=== PATIENT | male | born 1970 | race Two or more races ===

== ENCOUNTER 2019-05-30 15:54 | Emergency (ER) | payer MEDICAID, OTHER ==
[~2019-05-30] VITALS: Ht 170.2 cm; Wt 72.6 kg
[~2019-05-30 15:54] MED LIST: ATIVAN0.5 MG ORAL; ATIVAN1 MG ORAL; NKM
[2019-05-30 16:06] VITALS: BP 130/72
--- NOTE | 2019-05-30 16:09 | NUR ---
ED Nurse Note: pt [place] in to ER [place] ambulance [place] [facility] due to chest pain 05/11. pt aao x4 and ambulatory but weak at this moment. restless but cooperative with care and assessment. skin clean and intact. pt is in gown and on vehicle monitor technician. no aucte distress noted at this time.
--- NOTE | 2019-05-30 16:25 | Emergency Room Report ---
History of Present Illness General Chief Complaint: Chest Pain Source: Patient, EMS Present Illness HPI Patient is a 48-year-old male who presented after increased palpitations. Patient reportedly had been having chest pain for the past 2 days. He reports having increased alcohol use on Monday. He states he is not had any recent alcohol. He reports having generalized chest discomfort as well as anxiety. He states is not currently taking any medications for his heart.Patient given aspirin as well as nitroglycerin by EMS without any improvement. Allergies: Coded Allergies: No Known Allergies (Unverified , 05/10/14) Patient History Past Medical History: see triage record Reviewed Nursing Documentation: PMH: Agreed; PSxH: Agreed Nursing Documentation-PMH Past Medical History: No Stated History Hx Cardiac Problems: No Hx Cancer: No Hx Gastrointestinal Problems: Yes Hx Neurological Problems: No Review of Systems All Other Systems: negative except mentioned in HPI Physical Exam Vital Signs Date Time Temp Pulse Resp B/P (MAP) Pulse Ox O2 Delivery O2 Flow Rate FiO2 05/30/19 15:50 98.8 144 22 130/72 (91) 100 Room Air Sp02 EP Interpretation: reviewed, normal General Appearance: normal inspection, well appearing, no apparent distress, alert, GCS 15 Head: atraumatic ENT: normal ENT inspection, hearing grossly normal, normal voice Neck: normal inspection, full range of motion, supple, no bony tend Respiratory: normal inspection, lungs clear, normal breath sounds, no respiratory distress, no retraction, no wheezing Cardiovascular #1: no edema, tachycardia Gastrointestinal: normal inspection, normal bowel sounds, non tender, soft, no guarding, no hernia Genitourinary: no CVA tenderness Musculoskeletal: normal inspection, back normal, normal range of motion Neurologic: normal inspection, alert, oriented x3, responsive, neonatal social worker III-XII nml as tested, speech normal Psychiatric: normal inspection, judgement/insight normal, mood/affect normal Medical Decision Making Diagnostic Impression: Primary Impression: Acute alcoholic intoxication ER Course Patient presented for chest pain. Differential diagnosis included but was not limited to acute coronary syndrome, pulmonary embolism, pneumothorax, pericarditis, aortic dissection, chest wall pain, shingles, pneumonia, esophageal perforation among others. Because of patients complexity, laboratory tests and imaging studies were ordered Patient was noted to have recent history of alcohol abuse and was given IV acid blockers as well as thiamine IV. He was given medication for rate control. He was started on IV fluids with improvement in initial tachycardia. EKG interpreted by me showed sinus tachycardia without acute st or t wave changes. Laboratory Tests Test 05/30/19 16:10 05/30/19 16:38 White Blood Count 14.6 K/UL (4.8-10.8) H Red Blood Count 5.77 M/UL (4.70-6.10) Hemoglobin 17.5 G/DL (14.2-18.0) Hematocrit 50.4 % (42.0-52.0) Mean Corpuscular Volume 87 FL (80-99) Mean Corpuscular Hemoglobin 30.4 PG (27.0-31.0) Mean Corpuscular Hemoglobin Concent 34.8 G/DL (32.0-36.0) Red Cell Distribution Width 11.9 % (11.6-14.8) Platelet Count 261 K/UL (150-450) Mean Platelet Volume 6.2 FL (6.5-10.1) L Neutrophils (%) (Auto) 60.2 % (45.0-75.0) Lymphocytes (%) (Auto) 31.3 % (20.0-45.0) Monocytes (%) (Auto) 7.2 % (1.0-10.0) Eosinophils (%) (Auto) 0.5 % (0.0-3.0) Basophils (%) (Auto) 0.9 % (0.0-2.0) Sodium Level 145 MMOL/L (136-145) Potassium Level 3.7 MMOL/L (3.5-5.1) Chloride Level 103 MMOL/L (98-107) Carbon Dioxide Level 21 MMOL/L (21-32) Anion Gap 21 mmol/L (5-15) H Blood Urea Nitrogen 15 mg/dL (7-18) Creatinine 1.2 MG/DL (0.55-1.30) Estimate Glomerular Filtration Rate > 60 mL/min (>60) Glucose Level 138 MG/DL (74-106) H Calcium Level 8.8 MG/DL (8.5-10.1) Total Bilirubin 0.9 MG/DL (0.2-1.0) Aspartate Amino Transferase (AST) 47 U/L (15-37) H Alanine Aminotransferase (ALT) 27 U/L (12-78) Alkaline Phosphatase 63 U/L (46-116) Total Creatine Kinase 786 U/L (26-308) H Troponin I 0.004 ng/mL (0.000-0.056) Pro-B-Type Natriuretic Peptide < 5 pg/mL (0-125) Total Protein 8.1 G/DL (6.4-8.2) Albumin 4.1 G/DL (3.4-5.0) Globulin 4.0 g/dL Albumin/Globulin Ratio 1.0 (1.0-2.7) Lipase 102 U/L (73-393) Serum Alcohol 282 mg/dL Urine Opiates Screen Negative (NEGATIVE) Urine Barbiturates Screen Negative (NEGATIVE) Phencyclidine (PCP) Screen Negative (NEGATIVE) Urine Amphetamines Screen Negative (NEGATIVE) Urine Benzodiazepines Screen Negative (NEGATIVE) Urine Cocaine Screen Negative (NEGATIVE) Urine Marijuana (THC) Screen Negative (NEGATIVE) EKG Diagnostic Results Rate: tachycardiac - 123 Rhythm: NSR ST Segments: other - lafb Last Vital Signs Date Time Temp Pulse Resp B/P (MAP) Pulse Ox O2 Delivery O2 Flow Rate FiO2 05/30/19 16:06 126 25 Room Air 05/30/19 16:06 98.8 130/72 100 Status: improved Disposition: HOME, SELF-CARE Condition: Stable Referrals: NOT CHOSEN IPA/,REFERRING (PCP) Tony Escobar MD May 30, 2019 16:25
[2019-05-30] MEDS ORDERED: Metoprolol 5mg/5ml Inj IVP SCH (16:30)
[2019-05-30] MEDS ORDERED: Thiamine HCl 100 MG in D5W 55 ML IVPB ONE (16:30)
[2019-05-30] MEDS ORDERED: LORazepam Inj 2mg/ml 1ml IV ONE (16:30)
[2019-05-30 16:46] LABS: BASOPHILS % (AUTO) 0.9 % (0.0-2.0); EOSINOPHILS % (AUTO) 0.5 % (0.0-3.0); HEMATOCRIT 50.4 % (42.0-52.0); HEMOGLOBIN 17.5 G/DL (14.2-18.0); LYMPHOCYTES % (AUTO) 31.3 % (20.0-45.0); MEAN CORPUSCULAR VOLUME 87 FL (80-99); MONOCYTES % (AUTO) 7.2 % (1.0-10.0); NEUTROPHILS % (AUTO) 60.2 % (45.0-75.0); PLATELET COUNT 261 K/UL (150-450); RED BLOOD COUNT 5.77 M/UL (4.70-6.10); RED CELL DISTRIBUTION WIDTH 11.9 % (11.6-14.8); WHITE BLOOD COUNT 14.6 K/UL (4.8-10.8)
--- NOTE | 2019-05-30 16:54 | NUR ---
ED Nurse Note: called lab for reminder of additional lab order.
[2019-05-30 16:56] LABS: ANION GAP 21 mmol/L (5-15); BLOOD UREA NITROGEN 15 mg/dL (7-18); CALCIUM 8.8 MG/DL (8.5-10.1); CARBON DIOXIDE 21 MMOL/L (21-32); CHLORIDE 103 MMOL/L (98-107); CREATININE 1.2 MG/DL (0.55-1.30); POTASSIUM 3.7 MMOL/L (3.5-5.1); SODIUM 145 MMOL/L (136-145)
[2019-05-30 17:06] LABS: ALANINE AMINOTRANSFERASE 27 U/L (12-78); ALBUMIN 4.1 G/DL (3.4-5.0); ALKALINE PHOSPHATASE 63 U/L (46-116); ASPARTATE AMINO TRANSFERASE 47 U/L (15-37); BILIRUBIN,TOTAL 0.9 MG/DL (0.2-1.0); CREATINE KINASE 786 U/L (26-308)
[2019-05-30 17:53] VITALS: BP 128/69
--- NOTE | 2019-05-30 17:54 | NUR ---
ED Nurse Note: pt resting without acute distress in bed.
--- NOTE | 2019-05-30 18:42 | NUR ---
ED Nurse Note: pt is sober and stable. reported to ERMD.
--- NOTE | 2019-05-30 19:01 | NUR ---
HAND-OFF: Report given to ZACHARIAH Lara. waiting for discharge paper.
--- NOTE | 2019-05-30 19:02 | NUR ---
ED Nurse Note: ED Nurse Note: Recived pt form [facility]. Pt with no acute distress, vss, and states that ge feels much better.
[2019-05-30 21:45] VITALS: BP 137/71
--- NOTE | 2019-05-31 16:38 | Cardiology Report ---
APPROVED REPORT EKG Measurement Heart [id number] Sinus tachycardia Left anterior fascicular block Abnormal ECG
== END 2019-05-30 21:45 | disposition home or self-care (01) ==
LOC: EDBD 15:54 → EMR 16:21
DX: F10.129 Alcohol abuse with intoxication, unspecified (principal); R07.89 Other chest pain; F41.9 Anxiety disorder, unspecified
CPT/HCPCS: 36415; 80053; 80307; 82550; 83690; 83880; 84484; 85025; 93005; 96365; 96367; 96375; 99284; G0480; S0028; 80329

== ENCOUNTER 2019-06-02 23:27 | Emergency (ER) | payer SELFPAY ==
[~2019-06-02] VITALS: Ht 170.2 cm; Wt 68.0 kg
[2019-06-02 23:32] VITALS: BP 132/84
--- NOTE | 2019-06-02 23:32 | NUR ---
ED Nurse Note: BIBA with complaints of hest pain and anxiety.
[2019-06-02] MEDS ORDERED: Nitroglycerin 2% oint pkt TOPIC ONE (23:45)
--- NOTE | 2019-06-02 23:49 | Emergency Room Report ---
History of Present Illness General Chief Complaint: Chest Pain Source: Patient Present Illness HPI Patient complains of chest pain. He was recently hospitalized and says he is troponin was elevated. He alleges was hospitalized for 5 days. Not been taking any medications because none were given on discharge. He denies any drug use. He denies diabetes or hypertension. He feels like he is dying. He denies suicidal ideation. The patient was transported by EMS. Prehospital EKG was normal. He rates the pain 8/10, aching pressure and constant. He denies exertional dyspnea or worsening of chest pain with exertion. Review of records here reveals the patient's been seen for alcohol ingestion in the past. (There is no evidence of any troponins being elevated.) He says is been given prescriptions but has not bothered filling them on discharge. At one point he states that he last drank 2 days ago and then another point he says it must of been 5 days ago. No fevers, chills, sore throat, palpitations, nausea, vomiting, diarrhea, dysuria, abdominal pain, joint pain, rashes, visual changes, headache. Allergies: Coded Allergies: No Known Allergies (Unverified , 05/10/14) Patient History Past Medical History: see triage record Social History: Reports: alcohol use; Denies: smoking Social History Narrative correctional counselor/case manager - [facility] Reviewed Nursing Documentation: PMH: Agreed; PSxH: Agreed Nursing Documentation-PMH Past Medical History: No History, Except For Hx Cardiac Problems: No Hx Cancer: No Hx Gastrointestinal Problems: Yes History Of Psychiatric Problem: Yes - ANXIETY Hx Neurological Problems: No Review of Systems All Other Systems: negative except mentioned in HPI Physical Exam Vital Signs Date Time Temp Pulse Resp B/P (MAP) Pulse Ox O2 Delivery O2 Flow Rate FiO2 06/02/19 23:32 98.4 86 14 132/84 (100) 98 Room Air Sp02 EP Interpretation: reviewed, normal General Appearance: well appearing, no apparent distress, GCS 15 Head: normocephalic Eyes: bilateral eye normal inspection ENT: moist mucus membranes Neck: supple Respiratory: chest non-tender, lungs clear, normal breath sounds Cardiovascular #1: regular rate, rhythm, no edema Cardiovascular #2: 2+ radial (R) Gastrointestinal: normal inspection, normal bowel sounds, non tender, no mass, non-distended Musculoskeletal: back normal, normal range of motion Neurologic: alert, oriented x3, grossly normal Psychiatric: anxious Skin: no rash, other - Sanchez from prior bumboater patches Medical Decision Making Diagnostic Impression: Primary Impression: Chest pain Qualified Codes: R07.9 - Chest pain, unspecified Additional Impressions: Alcohol withdrawal Qualified Codes: F10.239 - Alcohol dependence with withdrawal, unspecified Hypokalemia Non-compliance Anxiety ER Course Patient complains of chest pain. He alleges that he has had elevated troponins in the past. This is not confirmed with our work-up here. However we need to exclude acute microinfarction, acute coronary syndrome, esophagitis, gastritis, esophageal spasm, anxiety pulmonary infection amongst others. Clinically the patient does not have a pulmonary embolus. Evaluation with EKG, chest x-ray and labs. The patient will be treated with aspirin, Ativan and a small dose of morphine. EKG sinus bradycardia with left anterior fascicular block. Chest x-ray no infiltrates. Labs slightly elevated white count and hemoglobin. Slightly low potassium and minimally elevated glucose. Minimally elevated CPK. Opponent negative. Tox and blood alcohol negative. No medical emergency at this time. Patient improved with treatment. Patient stable for outpatient observation and treatment. Laboratory Tests Test 06/02/19 23:48 06/03/19 02:50 White Blood Count 11.4 K/UL (4.8-10.8) H Red Blood Count 4.88 M/UL (4.70-6.10) Hemoglobin 14.9 G/DL (14.2-18.0) Hematocrit 42.5 % (42.0-52.0) Mean Corpuscular Volume 87 FL (80-99) Mean Corpuscular Hemoglobin 30.6 PG (27.0-31.0) Mean Corpuscular Hemoglobin Concent 35.1 G/DL (32.0-36.0) Red Cell Distribution Width 11.6 % (11.6-14.8) Platelet Count 171 K/UL (150-450) Mean Platelet Volume 7.0 FL (6.5-10.1) Neutrophils (%) (Auto) 53.4 % (45.0-75.0) Lymphocytes (%) (Auto) 34.9 % (20.0-45.0) Monocytes (%) (Auto) 9.0 % (1.0-10.0) Eosinophils (%) (Auto) 1.6 % (0.0-3.0) Basophils (%) (Auto) 1.1 % (0.0-2.0) Prothrombin Time 10.7 SEC (9.30-11.50) Prothrombin Time INR 1.0 (0.9-1.1) PTT 28 SEC (23-33) Urine Color Pale yellow Urine Appearance Clear Urine pH 8 (4.5-8.0) Urine Specific [place] 1.015 (1.005-1.035) Urine Protein 2+ (NEGATIVE) H Urine Glucose (UA) Negative (NEGATIVE) Urine Ketones Negative (NEGATIVE) Urine Blood Negative (NEGATIVE) Urine Nitrite Negative (NEGATIVE) Urine Bilirubin Negative (NEGATIVE) Urine Urobilinogen Normal MG/DL (0.0-1.0) Urine Leukocyte Esterase Negative (NEGATIVE) Urine RBC 0-2 /HPF (0 - 0) H Urine WBC 0 /HPF (0 - 0) Urine Squamous Epithelial Cells None /LPF (NONE/OCC) Urine Bacteria None /HPF (NONE) Sodium Level 137 MMOL/L (136-145) Potassium Level 3.3 MMOL/L (3.5-5.1) L Chloride Level 99 MMOL/L (98-107) Carbon Dioxide Level 30 MMOL/L (21-32) Anion Gap 8 mmol/L (5-15) Blood Urea Nitrogen 10 mg/dL (7-18) Creatinine 1.0 MG/DL (0.55-1.30) Estimate Glomerular Filtration Rate > 60 mL/min (>60) Glucose Level 139 MG/DL (74-106) H Calcium Level 9.6 MG/DL (8.5-10.1) Total Bilirubin 1.7 MG/DL (0.2-1.0) H Direct Bilirubin 0.3 MG/DL (0.0-0.3) Aspartate Amino Transferase (AST) 64 U/L (15-37) H Alanine Aminotransferase (ALT) 41 U/L (12-78) Alkaline Phosphatase 63 U/L (46-116) Total Creatine Kinase 1244 U/L (26-308) H Troponin I 0.000 ng/mL (0.000-0.056) Pro-B-Type Natriuretic Peptide 34 pg/mL (0-125) Total Protein 7.1 G/DL (6.4-8.2) Albumin 3.5 G/DL (3.4-5.0) Globulin 3.6 g/dL Albumin/Globulin Ratio 1.0 (1.0-2.7) Urine Opiates Screen Negative (NEGATIVE) Urine Barbiturates Screen Negative (NEGATIVE) Phencyclidine (PCP) Screen Negative (NEGATIVE) Urine Amphetamines Screen Negative (NEGATIVE) Urine Benzodiazepines Screen Negative (NEGATIVE) Urine Cocaine Screen Negative (NEGATIVE) Urine Marijuana (THC) Screen Negative (NEGATIVE) Serum Alcohol < 3 mg/dL EKG Diagnostic Results Rate: bradycardiac Rhythm: NSR ST Segments: no acute changes Rhythm Strip Diag. Results EP Interpretation: yes Rhythm: no PVC's, no ectopy, other - ruslan Chest X-Ray Diagnostic Results Chest X-Ray Diagnostic Results : Chest X-Ray Ordered: Yes # of Views/Limited/Complete: 1 View Indication: Chest Pain EP Interpretation: Yes Interpretation: no consolidation, no effusion, no pneumothorax Impression: No acute disease Electronically Signed by: Electronically signed by John Gonsalez MD Last Vital Signs Date Time Temp Pulse Resp B/P (MAP) Pulse Ox O2 Delivery O2 Flow Rate FiO2 06/03/19 03:58 98.4 75 17 115/80 95 Room Air Status: improved Disposition: HOME, SELF-CARE Condition: Improved Scripts Famotidine (PEPCID AC) 20 Mg Tablet 20 MG PO DAILY, #20 TAB 1 Refill Prov: John Gonsalez MD 06/03/19 Chlordiazepoxide Hcl* (LIBRIUM*) 10 Mg Capsule 10 MG ORAL as directed, #24 CAP 0 Refills 2 tabs TID X 2 days, 1 tab TID X 2 days, 1 tab BID X 2 days, 1 tab QD X 2 days Prov: John Gonsalez MD 06/03/19 John Gonsalez MD Jun 02, 2019 23:49
[2019-06-03] MEDS ORDERED: Morphine Sulfate 2mg/ml Inj(IV/IM USE ONLY) IVP ONE
[2019-06-03] MEDS ORDERED: LORazepam Inj 2mg/ml 1ml IV ONE
[2019-06-03 00:20] LABS: BASOPHILS % (AUTO) 1.1 % (0.0-2.0); EOSINOPHILS % (AUTO) 1.6 % (0.0-3.0); HEMATOCRIT 42.5 % (42.0-52.0); HEMOGLOBIN 14.9 G/DL (14.2-18.0); LYMPHOCYTES % (AUTO) 34.9 % (20.0-45.0); MEAN CORPUSCULAR VOLUME 87 FL (80-99); NEUTROPHILS % (AUTO) 53.4 % (45.0-75.0); PLATELET COUNT 171 K/UL (150-450); RED BLOOD COUNT 4.88 M/UL (4.70-6.10); RED CELL DISTRIBUTION WIDTH 11.6 % (11.6-14.8); WHITE BLOOD COUNT 11.4 K/UL (4.8-10.8)
[2019-06-03 00:28] LABS: APPEARANCE,URINE CLEAR; BILIRUBIN, URINE NEGATIVE (NEGATIVE); COLOR,URINE PALE YELLOW; GLUCOSE, URINE (UA) NEGATIVE (NEGATIVE); KETONES,URINE NEGATIVE (NEGATIVE); LEUKOCYTE ESTERASE ,URINE NEGATIVE (NEGATIVE); NITRITE,URINE NEGATIVE (NEGATIVE); PH,URINE 8 (4.5-8.0); PROTEIN,URINE 2+ (NEGATIVE); UROBILINOGEN,URINE NORMAL MG/DL (0.0-1.0)
--- NOTE | 2019-06-03 00:32 | NUR ---
ED Nurse Note: Blood and urine collected and sent down to lab, will continue to monitor.
[2019-06-03 00:39] LABS: ANION GAP 8 mmol/L (5-15); BLOOD UREA NITROGEN 10 mg/dL (7-18); CALCIUM 9.6 MG/DL (8.5-10.1); CARBON DIOXIDE 30 MMOL/L (21-32); CHLORIDE 99 MMOL/L (98-107); POTASSIUM 3.3 MMOL/L (3.5-5.1); SODIUM 137 MMOL/L (136-145)
[2019-06-03 00:55] LABS: ALANINE AMINOTRANSFERASE 41 U/L (12-78); ALBUMIN 3.5 G/DL (3.4-5.0); ALKALINE PHOSPHATASE 63 U/L (46-116); ASPARTATE AMINO TRANSFERASE 64 U/L (15-37); BILIRUBIN,TOTAL 1.7 MG/DL (0.2-1.0); CREATINE KINASE 1244 U/L (26-308)
--- NOTE | 2019-06-03 00:59 | Diagnostic Imaging Report ---
EXAM: XR Chest, 1 View CLINICAL HISTORY: CP TECHNIQUE: Frontal view of the chest. COMPARISON: No relevant prior studies available. FINDINGS: Lungs: Unremarkable. No consolidation. Pleural space: Unremarkable. No pneumothorax. Heart: Unremarkable. No cardiomegaly. Mediastinum: Unremarkable. Bones/joints: Unremarkable. IMPRESSION: No acute cardiopulmonary disease.
[2019-06-03 01:28] VITALS: BP 115/80
[2019-06-03 01:28] LABS: BILIRUBIN,DIRECT 0.3 MG/DL (0.0-0.3)
--- NOTE | 2019-06-03 01:34 | NUR ---
ED Nurse Note: Patiet resting comfortably, no s/s of acute distress, vital signs stable and documented.
[2019-06-03] MEDS ORDERED: Mylanta II UD 30ml ORAL ONE (03:45)
[2019-06-03] MEDS ORDERED: PEPCID AC20 M2 PO (03:50)
[2019-06-03] MEDS ORDERED: LIBRIUM10 MG ORAL (03:50)
[2019-06-03 03:58] VITALS: BP 115/80
--- NOTE | 2019-06-03 03:58 | NUR ---
ED Nurse Note: Patient cleared for discharge, no s/s of acute distress. Patient verbalized understanding of discharge instructions. ID band removed, IV removed. PAtient departed with all belongings and phone was charged so that he could call an Uber.
== END 2019-06-03 03:58 | disposition home or self-care (01) ==
LOC: EDBD 23:27 → EDUNIT# 23:27 → EMR 23:50
DX: R07.9 Chest pain, unspecified (principal); F10.239 Alcohol dependence with withdrawal, unspecified; E87.6 Hypokalemia; F41.9 Anxiety disorder, unspecified; Z91.19 Patient's noncompliance with other medical treatment and regimen
CPT/HCPCS: 36415; 71045; 80053; 80307; 81003; 82248; 82550; 83880; 84484; 85025; 85610; 85730; 93005; 96361; 96374; 96375; 99284; G0480; J2270; S0028; 80329

== ENCOUNTER 2020-10-05 18:56 | Emergency (ER) | payer SELFPAY ==
[~2020-10-05] VITALS: Ht 170.2 cm; Wt 79.8 kg
[~2020-10-05 18:56] MED LIST changes: +LIBRIUM10 MG ORAL; +PEPCID AC20 M2 PO
[2020-10-05] MEDS ORDERED: LORazepam 1mg tab ORAL ONE (19:00)
--- NOTE | 2020-10-05 19:00 | NUR ---
ED Nurse Note: Patient [address] [address] with c/o panic attack sec to alcohol intoxication. Pt denies SI/HI/AH/VH. PT c/o palpitations but denies CP, SOB/, N/V/D, fever or chill. Per EMS, pt wants Ativan. Pt is AAOx4 and ambulatory. ERPA at bedside.
--- NOTE | 2020-10-05 19:02 | Emergency Room Report ---
History of Present Illness General Chief Complaint: Behavioral Complaint Source: Patient Present Illness HPI 49-year-old male with history of anxiety and alcohol intoxication brought in by paramedics due to anxiety attack secondary to alcohol intoxication. Patient reports that he last drank 2 days ago and is seeking Ativan only. Continue paramedics patient has been going from emergency department to emergency department asking for Ativan stating that" it is the only thing that helps him." Also complains of palpitation however denies chest pain shortness of breath. Denies cough or congestion. Denies headache and dizziness. Patient arrives to ED, crying. Reports that" is afraid that it might go home and tired." Patient kept saying abdomen is really not helping. Patient has not established with a therapist. Patient is asking to be discharged with Ativan. Denies SI and HI Allergies: Coded Allergies: No Known Allergies (Unverified , 05/10/14) COVID-19 Screening Contact w/high risk pt: No Experienced COVID-19 symptoms?: No COVID-19 Testing performed SENIOR ASP NET DEVELOPER: No Patient History Past Medical History: see triage record Past Surgical History: none Pertinent Family History: none Immunizations: UTD Reviewed Nursing Documentation: PMH: Agreed; PSxH: Agreed Nursing Documentation-PMH Hx Cardiac Problems: Yes Hx Cancer: No Hx Gastrointestinal Problems: Yes History Of Psychiatric Problem: Yes - etoh, anxiety Hx Neurological Problems: No Review of Systems All Other Systems: negative except mentioned in HPI Physical Exam Vital Signs Date Time Temp Pulse Resp B/P (MAP) Pulse Ox O2 Delivery O2 Flow Rate FiO2 10/05/20 18:52 98.2 112 16 133/95 (108) 98 Room Air Sp02 EP Interpretation: abnormal - Slightly tachycardic General Appearance: well appearing Head: normocephalic, atraumatic Eyes: bilateral eye normal inspection, bilateral eye PERRL ENT: hearing grossly normal, no angioedema, normal voice Neck: full range of motion Respiratory: no respiratory distress, no retraction, no accessory muscle use Cardiovascular #1: no edema, no murmur Gastrointestinal: soft Genitourinary: no CVA tenderness Musculoskeletal: back normal Neurologic: alert, motor strength/tone normal, oriented x3, sensory intact, responsive, speech normal Psychiatric: judgement/insight normal, memory normal, mood/affect normal, no suicidal/homicidal ideation, anxious Skin: no rash Lymphatic: no adenopathy Medical Decision Making Diagnostic Impression: Primary Impression: Anxiety Additional Impression: Alcohol abuse ER Course 49-year-old male with history of anxiety and alcohol intoxication brought in by paramedics due to anxiety attack secondary to alcohol intoxication. Patient reports that he last drank 2 days ago and is seeking Ativan only. Continue paramedics patient has been going from emergency department to emergency department asking for Ativan stating that" it is the only thing that helps him." Also complains of palpitation however denies chest pain shortness of breath. Denies cough or congestion. Denies headache and dizziness. Patient arrives to ED, crying. Reports that" is afraid that it might go home and tired." Patient kept saying abdomen is really not helping. Patient has not established with a therapist. Patient is asking to be discharged with Ativan. Denies SI and HI Ddx considered but are not limited to: generalized anxiety disorder, panic attack, depression with psycotic featurs, bipolar disorder, drug overdose Vital signs: are WNL, pt. is afebrile H&PE are most consistent with: Anxiety, alcohol abuse ORDERS: EKG, patient EKG appears to be very similar to the EKG that was done on patient back in 2019 at [facility]. ED INTERVENTIONS: Ativan 1 mg p.o. DISCHARGE: At this time pt. is stable for d/c to home. Will provide printed patient care instructions, and any necessary prescriptions. Care plan and follow up instructions have been discussed with the patient prior to discharge. Advised patient to stop drinking, follow primary doctor and therapist for better management of anxiety. Also I explained the patient we cannot discharge him with more Ativan in the emergency room withdrawal due to alcohol abuse. Patient needs to have better resources. Patient deferred any blood work, patient deferred any referrals to rehab facilities. EKG Diagnostic Results Rate: tachycardiac Rhythm: other - slightly tachycardic ST Segments: no acute changes Other Impression No acute ST changes ASA given to the pt in ED: No Last Vital Signs Date Time Temp Pulse Resp B/P (MAP) Pulse Ox O2 Delivery O2 Flow Rate FiO2 10/05/20 18:52 98.2 112 16 133/95 (108) 98 Room Air Disposition: HOME, SELF-CARE Condition: Stable Patient Instructions: Generalized Anxiety Disorder Additional Instructions: Avoid drinking alcohol as it induces her anxiety, follow-up with your therapist for management of anxiety. At this time we cannot dispense any Ativan you need to have better management for anxiety. Avoid drinking alcohol. If worsening symptoms return to the emergency room Dontae Herrera Oct 05, 2020 19:02
--- NOTE | 2020-10-05 19:05 | NUR ---
ED Nurse Note: EKG/ CXR dominique
--- NOTE | 2020-10-05 19:05 | NUR ---
ED Nurse Note: EKG/ CXR done
[2020-10-05 19:15] VITALS: BP 133/75
[2020-10-05 19:20] VITALS: BP 133/75
--- NOTE | 2020-10-05 19:20 | NUR ---
ER DISCHARGE NOTE: Patient is cleared to be discharged per ERMD, pt is aox4, on room air, with stable vital signs. pt was given dc and prescription instructions, pt was able to verbalize understanding, pt id band removed.pt is able to ambulate with steady gait. pt took all belongings.
--- NOTE | 2020-10-07 02:15 | Cardiology Report ---
APPROVED REPORT EKG Measurement Heart [id number] <Conclusion> Sinus tachycardia Right superior axis deviation Incomplete right bundle branch block Right ventricular hypertrophy Septal infarct, age undetermined Abnormal ECG
== END 2020-10-05 19:30 | disposition home or self-care (01) ==
LOC: EDBD 18:56 → EMR 19:00
DX: F41.9 Anxiety disorder, unspecified (principal); F10.129 Alcohol abuse with intoxication, unspecified
CPT/HCPCS: 93005; 99283